=== PATIENT | female | born 1975 | race Caucasian/White ===

== ENCOUNTER → 2020-04-27 | Day surgery (SDC) | payer OTHER ==
[~2020-04-27] MED LIST: BUPRENORPHIN-N1 EACH PO; DICLOFENAC SODI75 MG PO; DULOXETINE HCL60 MG PO; FAMOTIDINE40 MG PO; LIOTHYRONINE S25 MCG PO; LOVAZA1 GM PO; METRONIDAZOLE500 MG PO; PROBIOTIC1 EAC2 PO; VITAMIN D325 MC1 PO
== END | disposition home or self-care (01) ==
LOC: FAS 08:51
DX: K92.1 Melena (principal); K21.9 Gastro-esophageal reflux disease without esophagitis; K31.89 Other diseases of stomach and duodenum; E03.9 Hypothyroidism, unspecified; M19.90 Unspecified osteoarthritis, unspecified site; M48.00 Spinal stenosis, site unspecified; E78.00 Pure hypercholesterolemia, unspecified; F32.9 Major depressive disorder, single episode, unspecified; Z86.010 Personal history of colon polyps; Z88.6 Allergy status to analgesic agent
CPT/HCPCS: J2250; J2704; J7120